=== PATIENT | male | born 1990 | race Caucasian/White ===

== ENCOUNTER 2018-05-24 20:40 | Emergency (ER) | payer OTHER ==
[~2018-05-24] VITALS: Ht 185.4 cm; Wt 83.0 kg
[2018-05-24 21:30] VITALS: BP 106/69
--- NOTE | 2018-05-24 22:53 | PHYS DOC ---
Past Medical History Past Medical History: Other Additional Past Medical Histor: PTSD Past Surgical History: No Surgical History Alcohol Use: None Drug Use: None Adult General Chief Complaint Chief Complaint: SORE THROAT HPI HPI Patient is a 27 year old since to the emergency department with complaints of a sore throat for the last week. Patient also reports generalized weakness and fatigue. He currently rates his pain a 6/10 on the pain scale, he denies any alleviating factors. Review of Systems Review of Systems Constitutional: Denies fever reports fatigue Eyes: Denies change in visual acuity, redness, or eye pain [] HENT: Denies nasal congestion; reports sore throat with hoarse voice for a week Respiratory: Denies cough or shortness of breath [] Cardiovascular: No additional information not addressed in HPI [] GI: Denies abdominal pain, nausea, vomiting, or diarrhea [] Musculoskeletal: Denies back pain or joint pain [] Integument: Denies rash or skin lesions [] Neurologic: Denies headache Current Medications Current Medications Current Medications Medications (Trade) Dose Ordered Sig/[place] Start Time Stop Time Status Last Admin Dose Admin Dexamethasone Sodium Phosphate (Decadron) 10 mg 1X ONCE 05/24/18 23:30 05/24/18 23:30 DC 05/24/18 23:02 10 MG Allergies Allergies Allergies Coded Allergies Type Severity Reaction Last Updated Verified No Known Drug Allergies 05/24/18 No Physical Exam Physical Exam Constitutional: Well developed, well nourished, no acute distress, non-toxic appearance. [] HENT: Normocephalic, atraumatic, bilateral external ears normal, mild erythema of posterior pharynx, oropharynx moist, no oral exudates, nose normal. [] Eyes: conjunctiva normal, no discharge. [] Neck: Normal range of motion, no tenderness, supple, no stridor. [] Cardiovascular:Heart rate regular rhythm Lungs & Thorax: respirations even and unlabored, no retractions, no distress Skin: Warm, dry, no erythema, no rash. [] Extremities: No cyanosis, ROM intact, no edema, no deformities. Neurologic: Alert and oriented X 3, no focal deficits noted. [] Psychologic: Affect normal, judgement normal, mood normal. [] Current Patient Data Vital Signs Lab Values Laboratory Tests Test 05/24/18 21:40 Group A Streptococcus Rapid Negative (NEGATIVE) Microbiology 05/24/18 Throat Culture - Final, Complete 05/24/18 - Final, Complete 05/24/18 - Final, Complete EKG EKG [] Radiology/Procedures Radiology/Procedures [] Course & Med Decision Making Course & Med Decision Making Pertinent Labs and Imaging studies reviewed. (See chart for details) [] Dragon Disclaimer Dragon Disclaimer This electronic medical record was generated, in whole or in part, using a voice recognition dictation system. Departure Departure Impression: Primary Impression: URI (upper respiratory infection) Additional Impression: Nasal congestion Disposition: HOME, SELF-CARE Condition: STABLE Referrals: UNKNOWN PCP NAME (PCP) Patient Instructions: Upper Respiratory Infection, Adult, [id number] Additional Instructions: [id number] Flonase nasal spray 2 sprays each nare daily and an antihistamine such as Claritin or Zyrtec . Recommend a cool mist humidifier in room at bedtime. Tylenol or ibuprofen prn pain/fever. Increase clear fluids. Taj id triggers such as smoke, fragrance, dust, and pollen. Follow-up with your primary care doctor as needed, return to the ER if symptoms worsen. Problem Qualifiers Primary Impression: URI (upper respiratory infection) URI type: unspecified URI Qualified Codes: J06.9 - Acute upper respiratory infection, unspecified SINGH SPENCER APRN May 24, 2018 22:53
[2018-05-24] MEDS ORDERED: DEXAMETHASONE SOD PHOS 20 MG/5 ML VIAL. PO ONE (23:30)
== END 2018-05-24 23:15 | disposition home or self-care (01) ==
LOC: ER 20:40
DX: J06.9 Acute upper respiratory infection, unspecified (principal)
CPT/HCPCS: 87070; 87880; 99283; J1100